=== PATIENT | male | born 1950 | race Caucasian/White ===

== ENCOUNTER → 2016-11-24 | Outpatient (CLI) | payer MEDICARE, BC ==
[2016-11-24 09:31] LABS: Basophils % (A) 1 %; CH 29.7; CHCM 32.3; Eosinophils # (A) 0.6 k/uL (0-0.7); Eosinophils % (A) 11 %; HCT 39.6 % (39.0-53.0); HDW 2.34; HGB 12.6 gm/dL (13.0-17.5); Luc # (Auto) 0.21; Luc % (Auto) 4; Lymphocytes # (A) 1.2 k/uL (1.0-4.8); Lymphocytes % (A) 21 %; MCH 29.4 pg (25.0-35.0); MCHC 31.9 g/dL (31.0-37.0); MCV 92.4 fL (80.0-100.0); Mean Platelet Volume 7.7; Monocytes # (A) 0.4 k/uL (0-1.0); Monocytes % (A) 7 %; Neutrophils # (A) 3.3 k/uL (1.3-7.7); Neutrophils % (A) 57 %; RBC 4.29 m/uL (4.30-5.90); RDW 12.9 % (11.5-15.5); WBC 5.8 k/uL (3.8-10.6); WBC (Perox) 5.99
[2016-11-24 11:36] LABS: Hemoglobin A1C 7.1 % (4.2-6.1)
[2016-11-24 12:02] LABS: ALT 51 U/L (21-72); AST 32 U/L (17-59); Alkaline Phosphatase 87 U/L (38-126); Anion Gap 8 mmol/L; Blood Urea Nitrogen 35 mg/dL (9-20); Calcium 9.1 mg/dL (8.4-10.2); Carbon Dioxide 28 mmol/L (22-30); Chloride 104 mmol/L (98-107); Cholesterol 79 mg/dL (<200); Glucose 196 mg/dL (74-99); HDL Cholesterol 33 mg/dL (40-60); Non-African American GFR(MDRD) 51 (>60 ml/min/1.73 sqM); Potassium 5.5 mmol/L (3.5-5.1); Sodium 140 mmol/L (137-145); Total Bilirubin 0.4 mg/dL (0.2-1.3); Total Protein 6.5 g/dL (6.3-8.2); Triglycerides 64 mg/dL (<150)
== END | disposition home or self-care (01) ==
LOC: LABWHC1 08:52
PROVIDERS: ATTEND Internal Medicine
DX: E11.21 Type 2 diabetes mellitus with diabetic nephropathy (principal); E78.2 Mixed hyperlipidemia; I10 Essential (primary) hypertension; Z12.5 Encounter for screening for malignant neoplasm of prostate
CPT/HCPCS: 80061; 80053; 83036; 85025; 36415; G0103

== ENCOUNTER 2016-12-09 13:57 | Emergency (ER) | payer MEDICARE, BC ==
--- NOTE | 2016-12-09 15:18 | ED ---
General Adult HPI - General Chief complaint: Recheck/Abnormal Lab/Rx Stated complaint: high potassium-sent by Time Seen by Provider: 12/09/16 15:05 Source: patient, RN notes reviewed, old records reviewed Mode of arrival: wheelchair Limitations: no limitations - History of Present Illness Initial comments: This is a 66-year-old male the ER for evaluation of weakness. Diarrhea. Patient has had lab tests be followed an outpatient basis for the dehydration. Patient states he is scheduled for surgery tomorrow, he had an outpatient lab test that did show elevated potassium. Patient states he is eating and drinking normally. This feels a little dehydrated. - Related Data Home Medications Medication Instructions Recorded Confirmed Aspirin EC [Ecotrin Low Dose] 81 mg PO DAILY 12/09/16 12/09/16 Atorvastatin [Lipitor] 40 mg PO HS 12/09/16 12/09/16 Diphenoxylate HCl/Atropine 2 tab PO QID PRN 12/09/16 12/09/16 [Lomotil] Insulin Aspart (For Pump) [NovoLOG 0.01 unit SQ-PUMP CONTINUOUS 12/09/16 (For Pump)] Lisinopril [Zestril] 10 mg PO DAILY 12/09/16 12/09/16 Multivitamins, Thera [Multivitamin] 1 tab PO DAILY 12/09/16 12/09/16 Allergies Allergy/AdvReac Type Severity Reaction Status Date / Time No Known Allergies Allergy Verified 12/09/16 15:38 Review of Systems ROS Statement: Those systems with pertinent positive or pertinent negative responses have been documented in the HPI. ROS Other: All systems not noted in ROS Statement are negative. Past Medical History Past Medical History: Diabetes Mellitus History of Any Multi-Drug Resistant Organisms: None Reported Past Surgical History: Coronary Bypass/CABG Past Psychological History: No Psychological Hx Reported Smoking Status: Never smoker Past Alcohol Use History: None Reported Past Drug Use History: None Reported General Exam Limitations: no limitations General appearance: alert, in no apparent distress Head exam: Present: atraumatic, normocephalic, normal inspection Eye exam: Present: normal appearance, PERRL, EOMI. Absent: scleral icterus, conjunctival injection, periorbital swelling ENT exam: Present: normal exam, mucous membranes moist Neck exam: Present: normal inspection. Absent: tenderness, meningismus, lymphadenopathy Respiratory exam: Present: normal lung sounds bilaterally. Absent: respiratory distress, wheezes, rales, rhonchi, stridor Cardiovascular Exam: Present: regular rate, normal rhythm, normal heart sounds. Absent: systolic murmur, diastolic murmur, rubs, gallop, clicks GI/Abdominal exam: Present: soft, normal bowel sounds. Absent: distended, tenderness, guarding, rebound, rigid Extremities exam: Present: normal inspection, full ROM, normal capillary refill. Absent: tenderness, pedal edema, joint swelling, calf tenderness Back exam: Present: normal inspection Neurological exam: Present: alert, oriented X3, CN II-XII intact Psychiatric exam: Present: normal affect, normal mood Skin exam: Present: warm, dry, intact, normal color. Absent: rash Course Vital Signs 12/09/16 12/09/16 12/09/16 14:29 15:02 16:53 Temperature 98.7 F Pulse Rate 72 65 73 Respiratory 18 14 14 Rate Blood Pressure 83/48 101/51 142/67 O2 Sat by Pulse 96 97 95 Oximetry 12/09/16 12/09/16 18:36 19:19 Temperature 98.9 F Pulse Rate 73 78 Respiratory 14 16 Rate Blood Pressure 155/70 163/75 O2 Sat by Pulse 96 98 Oximetry - Reevaluation(s) Reevaluation #1: 12/09/16 19:30 The patient has no acute complaints, no diarrhea here emergency room, tolerating oral intake, will increase intake of fluids, potassium is dropped from 6-5.3 and patient given Kayexalate and 2 L of IV fluid EKG Findings - EKG Comments: EKG Findings:: EKG shows normal sinus rhythm rate of 60, [place] 152, crit 34, QTc 382, no peak T waves Medical Decision Making - Medical Decision Making 66-year-old ER for evaluation of hyperkalemia, potassium has improved and patient can be discharged home - Lab Data Result diagrams: 12/09/16 14:12 12/09/16 14:12 Lab Results 12/09/16 12/09/16 Range/Units 14:12 14:12 WBC 8.1 (3.8-10.6) k/uL RBC 3.58 L (4.30-5.90) m/uL Hgb 10.6 L (13.0-17.5) gm/dL Hct 32.7 L (39.0-53.0) % MCV 91.1 (80.0-100.0) fL MCH 29.5 (25.0-35.0) pg MCHC 32.4 (31.0-37.0) g/dL RDW 13.1 (11.5-15.5) % Plt Count 248 (150-450) k/uL Neutrophils % 70 % Lymphocytes % 17 % Monocytes % 5 % Eosinophils % 6 % Basophils % 0 % Neutrophils # 5.7 (1.3-7.7) k/uL Lymphocytes # 1.3 (1.0-4.8) k/uL Monocytes # 0.4 (0-1.0) k/uL Eosinophils # 0.5 (0-0.7) k/uL Basophils # 0.0 (0-0.2) k/uL Sodium 139 (137-145) mmol/L Potassium 5.3 H (3.5-5.1) mmol/L Chloride 108 H (98-107) mmol/L Carbon Dioxide 23 (22-30) mmol/L Anion Gap 8 mmol/L BUN 53 H (9-20) mg/dL Creatinine 2.20 H (0.66-1.25) mg/dL Est GFR (MDRD) Af Amer 37 (>60 ml/min/1.73 sqM) Est GFR (MDRD) Non-Af 30 (>60 ml/min/1.73 sqM) Glucose 112 H (74-99) mg/dL Calcium 8.7 (8.4-10.2) mg/dL Phosphorus 4.1 (2.5-4.5) mg/dL Magnesium 1.9 (1.6-2.3) mg/dL Total Bilirubin 0.4 (0.2-1.3) mg/dL AST 28 (17-59) U/L ALT 38 (21-72) U/L Alkaline Phosphatase 59 (38-126) U/L Total Protein 5.7 L (6.3-8.2) g/dL Albumin 3.1 L (3.5-5.0) g/dL Disposition Clinical Impression: Hyperkalemia, Dehydration, Diarrhea Disposition: HOME SELF-CARE Condition: Good Instructions: Hyperkalemia (ED) Referrals: Santosh De La Cruz MD [Primary Care Provider] - 1-2 days
[2016-12-09 15:25] LABS: Basophils % (A) 0 %; CH 29.6; CHCM 32.7; Eosinophils # (A) 0.5 k/uL (0-0.7); Eosinophils % (A) 6 %; HCT 32.7 % (39.0-53.0); HDW 2.35; HGB 10.6 gm/dL (13.0-17.5); Luc # (Auto) 0.16; Luc % (Auto) 2; Lymphocytes # (A) 1.3 k/uL (1.0-4.8); Lymphocytes % (A) 17 %; MCH 29.5 pg (25.0-35.0); MCHC 32.4 g/dL (31.0-37.0); MCV 91.1 fL (80.0-100.0); Mean Platelet Volume 7.6; Monocytes # (A) 0.4 k/uL (0-1.0); Monocytes % (A) 5 %; Neutrophils # (A) 5.7 k/uL (1.3-7.7); Neutrophils % (A) 70 %; RBC 3.58 m/uL (4.30-5.90); RDW 13.1 % (11.5-15.5); WBC 8.1 k/uL (3.8-10.6); WBC (Perox) 8.17
[2016-12-09 15:46] LABS: Calcium 8.7 mg/dL (8.4-10.2); Magnesium 1.9 mg/dL (1.6-2.3); Phosphorous 4.1 mg/dL (2.5-4.5); Potassium 5.3 mmol/L (3.5-5.1); Total Bilirubin 0.4 mg/dL (0.2-1.3); Total Protein 5.7 g/dL (6.3-8.2)
[2016-12-09] MEDS ORDERED: SODIUM CHLORIDE 0.9% 500 ML IV STA (16:14)
[2016-12-09] MEDS ORDERED: SODIUM POLYSTYRENE SULFONATE 15 GM/60 ML BOTTLE PO STA (16:14)
[2016-12-09] MEDS ORDERED: SODIUM CHLORIDE 0.9% 2,000 ML IV STA (16:14)
[2016-12-09 19:20] VITALS: BP 163/75; PULSE 78; RESP 16; TEMP 98.9
== END 2016-12-09 19:20 | disposition home or self-care (01) ==
LOC: EC 13:57
DX: E87.5 Hyperkalemia (principal); E86.0 Dehydration; R19.7 Diarrhea, unspecified; E11.9 Type 2 diabetes mellitus without complications; Z95.1 Presence of aortocoronary bypass graft; Z79.82 Long term (current) use of aspirin; Z79.4 Long term (current) use of insulin; Z79.899 Other long term (current) drug therapy
CPT/HCPCS: 36415; 80053; 83735; 84100; 85025; 93005; 99284

== ENCOUNTER → 2016-12-09 | Outpatient (CLI) | payer MEDICARE, BC ==
[2016-12-09 10:16] LABS: EKG EKG PERFORMED
[2016-12-09 11:04] LABS: Basophils % (A) 0 %; CH 29.5; CHCM 32.2; Eosinophils # (A) 0.2 k/uL (0-0.7); Eosinophils % (A) 2 %; HCT 35.6 % (39.0-53.0); HDW 2.37; HGB 11.6 gm/dL (13.0-17.5); Luc # (Auto) 0.09; Luc % (Auto) 1; Lymphocytes # (A) 0.9 k/uL (1.0-4.8); Lymphocytes % (A) 10 %; MCH 29.9 pg (25.0-35.0); MCHC 32.5 g/dL (31.0-37.0); Mean Platelet Volume 8.3; Monocytes # (A) 0.5 k/uL (0-1.0); Monocytes % (A) 5 %; Neutrophils # (A) 7.3 k/uL (1.3-7.7); Neutrophils % (A) 81 %; RBC 3.87 m/uL (4.30-5.90); WBC 9.1 k/uL (3.8-10.6); WBC (Perox) 9.64
[2016-12-09 11:35] LABS: ALT 39 U/L (21-72); AST 30 U/L (17-59); Alkaline Phosphatase 67 U/L (38-126); Anion Gap 10 mmol/L; Blood Urea Nitrogen 49 mg/dL (9-20); Calcium 9.2 mg/dL (8.4-10.2); Carbon Dioxide 25 mmol/L (22-30); Chloride 106 mmol/L (98-107); Glucose 78 mg/dL (74-99); Non-African American GFR(MDRD) 30 (>60 ml/min/1.73 sqM); Sodium 141 mmol/L (137-145); Total Bilirubin 0.5 mg/dL (0.2-1.3); Total Protein 6.4 g/dL (6.3-8.2)
== END | disposition home or self-care (01) ==
LOC: LABPAT 09:50
PROVIDERS: ATTEND Orthopaedic Surgery
DX: Z01.812 Encounter for preprocedural laboratory examination (principal); Z01.810 Encounter for preprocedural cardiovascular examination
CPT/HCPCS: 80053; 85025; 93005

== ENCOUNTER 2016-12-10 09:36 | Inpatient (IN) | payer MEDICARE, BC ==
[2016-12-09 11:51] VITALS: BMI 24.3
[~2016-12-10 09:36] MED LIST: ceFAZolin 2 GM in SODIUM CHLORIDE 0.9% 100 ML IVPB ONE
[2016-12-10 14:00] LABS: Glucose,Whole Blood 111 mg/dL (75-99)
[2016-12-10] MEDS ORDERED: LIDOCAINE 1% 20 ML VIAL (10MG/ML) FOR IV START INTRADERMA ONE (14:01)
[2016-12-10] MEDS: LACTATED RINGERS 1,000 ML IV SCH (14:01)
[2016-12-10] MEDS ORDERED: SENNOSIDES-DOCUSATE SODIUM 1 EACH TAB PO PRN (14:20)
[2016-12-10] MEDS ORDERED: ONDANSETRON 4 MG/2 ML VIAL IVP PRN (14:20)
[2016-12-10] MEDS ORDERED: HYDROmorphone 1 MG/ML 1 ML SYRINGE IVP PRN ×2 (14:20)
[2016-12-10] MEDS ORDERED: hydrOXYzine PAMOATE 25 MG CAP PO PRN ×2 (14:20)
[2016-12-10 14:32] LABS: Potassium 5.4 mmol/L (3.5-5.1)
[2016-12-10 14:35] LABS: Potassium 5.4 mmol/L (3.5-5.1)
[2016-12-10] MEDS ORDERED: ceFAZolin 2 GM in SODIUM CHLORIDE 0.9% 100 ML IVPB SCH (16:00)
[2016-12-10 16:56] LABS: Glucose,Whole Blood 146 mg/dL (75-99)
[2016-12-10] MEDS: SODIUM CHLORIDE 0.9% 1,000 ML IV SCH (17:44)
[2016-12-10 18:41] LABS: Basophils % (A) 0 %; CH 29.4; CHCM 31.6; Eosinophils # (A) 0.3 k/uL (0-0.7); Eosinophils % (A) 4 %; HCT 35.7 % (39.0-53.0); HDW 2.33; HGB 11.2 gm/dL (13.0-17.5); Luc # (Auto) 0.16; Luc % (Auto) 2; Lymphocytes # (A) 1.1 k/uL (1.0-4.8); Lymphocytes % (A) 16 %; MCH 29.3 pg (25.0-35.0); MCHC 31.4 g/dL (31.0-37.0); MCV 93.4 fL (80.0-100.0); Mean Platelet Volume 8.2; Monocytes # (A) 0.3 k/uL (0-1.0); Monocytes % (A) 5 %; Neutrophils # (A) 5.3 k/uL (1.3-7.7); Neutrophils % (A) 74 %; RBC 3.83 m/uL (4.30-5.90); RDW 13.1 % (11.5-15.5); WBC 7.2 k/uL (3.8-10.6)
[2016-12-10] MEDS ORDERED: SODIUM POLYSTYRENE SULFONATE 15 GM/60 ML BOTTLE PO STA (19:05)
[2016-12-10] MEDS: ATORVASTATIN 40 MG TAB PO SCH (20:31)
[2016-12-10 20:58] LABS: Glucose,Whole Blood 73 mg/dL (75-99)
[2016-12-10] MEDS ORDERED: ASPIRIN 325 MG TAB PO SCH (21:00)
[2016-12-11] MEDS: SODIUM CHLORIDE 0.9% 1,000 ML IV SCH ×2 (05:15→07:33)
[2016-12-11] MEDS: LACTATED RINGERS 1,000 ML IV SCH (05:45)
[2016-12-11 06:55] LABS: Glucose,Whole Blood 66 mg/dL (75-99)
[2016-12-11 06:55] LABS: Glucose,Whole Blood 69 mg/dL (75-99)
[2016-12-11 07:05] LABS: Anion Gap 8 mmol/L; Blood Urea Nitrogen 24 mg/dL (9-20); Calcium 8.9 mg/dL (8.4-10.2); Carbon Dioxide 26 mmol/L (22-30); Chloride 108 mmol/L (98-107); Glucose 73 mg/dL (74-99); Non-African American GFR(MDRD) 59 (>60 ml/min/1.73 sqM); Potassium 5.1 mmol/L (3.5-5.1); Sodium 142 mmol/L (137-145)
[2016-12-11] MEDS: LISINOPRIL 10 MG TAB PO SCH (07:33)
[2016-12-11 07:42] LABS: Glucose,Whole Blood 113 mg/dL (75-99)
--- NOTE | 2016-12-11 10:54 | P.PN ---
Subjective Principal diagnosis: Left patella fracture This is a 66-year-old male with history of left patella fracture. He was scheduled for open reduction showed fixation with possible partial papillectomy yesterday. His potassium was elevated in preop some is surgical case was canceled. His potassium is within normal limits today. He is doing well from orthopedic standpoint. He has no new complaints or concerns today. Objective - Vital Signs Vital signs: Vital Signs Temp 97.9 F 12/11/16 07:35 Pulse 68 12/11/16 07:35 Resp 17 12/11/16 07:35 BP 152/57 12/11/16 07:35 Pulse Ox 98 12/11/16 07:35 Intake & Output 12/10/16 12/11/16 12/11/16 18:59 06:59 18:59 Intake Total 1400 360 Balance 1400 360 Intake: Intake, IV Titration 900 Amount Sodium Chloride 0.9% 1, 900 000 ml @ 75 mls/hr IV . [id number] [facility] Rx#:[id number] Oral 500 360 Other: Voiding Method Urinal Toilet Toilet # Voids 1 - Exam This is a pleasant 66-year-old male in no acute distress. He is alert and oriented 3. Exam of the left lower extremity reveals that his braces intact. He has full foot and ankle motion without difficulty or pain. Neurovascular status to the lower extremity is intact. - Labs CBC & Chem 7: 12/10/16 15:22 12/11/16 06:15 Labs: Abnormal Lab Results - Last 24 Hours (Table) 12/09/16 12/10/16 12/10/16 Range/Units 13:30 13:30 13:40 RBC (4.30-5.90) m/uL Hgb (13.0-17.5) gm/dL Hct (39.0-53.0) % Potassium 5.4 H 5.4 H (3.5-5.1) mmol/L Chloride 109 H 109 H (98-107) mmol/L BUN (9-20) mg/dL Glucose (74-99) mg/dL POC Glucose (mg/dL) 111 H (75-99) mg/dL 12/10/16 12/10/16 12/10/16 Range/Units 15:22 16:32 20:38 RBC 3.83 L (4.30-5.90) m/uL Hgb 11.2 L (13.0-17.5) gm/dL Hct 35.7 L (39.0-53.0) % Potassium (3.5-5.1) mmol/L Chloride (98-107) mmol/L BUN (9-20) mg/dL Glucose (74-99) mg/dL POC Glucose (mg/dL) 146 H 73 L (75-99) mg/dL 12/11/16 12/11/16 12/11/16 Range/Units 06:15 06:37 06:53 RBC (4.30-5.90) m/uL Hgb (13.0-17.5) gm/dL Hct (39.0-53.0) % Potassium (3.5-5.1) mmol/L Chloride 108 H (98-107) mmol/L BUN 24 H (9-20) mg/dL Glucose 73 L (74-99) mg/dL POC Glucose (mg/dL) 69 L 66 L (75-99) mg/dL 12/11/16 Range/Units 07:22 RBC (4.30-5.90) m/uL Hgb (13.0-17.5) gm/dL Hct (39.0-53.0) % Potassium (3.5-5.1) mmol/L Chloride (98-107) mmol/L BUN (9-20) mg/dL Glucose (74-99) mg/dL POC Glucose (mg/dL) 113 H (75-99) mg/dL Assessment and Plan (1) Fracture of patella, left, closed Status: Acute (2) Hyperkalemia Status: Acute Plan: The clinical findings are discussed with the patient. He has been cleared by Dr. De La Cruz for surgery tomorrow.
[2016-12-11 11:19] LABS: Glucose,Whole Blood 123 mg/dL (75-99)
[2016-12-11 11:59] LABS: Hemoglobin A1C 6.9 % (4.2-6.1)
[2016-12-11 16:36] LABS: Glucose,Whole Blood 51 mg/dL (75-99)
[2016-12-11 17:11] LABS: Glucose,Whole Blood 92 mg/dL (75-99)
[2016-12-11] MEDS: ATORVASTATIN 40 MG TAB PO SCH (19:40)
[2016-12-11 19:49] LABS: Glucose,Whole Blood 124 mg/dL (75-99)
[2016-12-12] MEDS: HYDROcodone/APAP 5-325MG 1 EACH TAB PO PRN ×4 (00:15→23:17)
[2016-12-12] MEDS: LACTATED RINGERS 1,000 ML IV SCH (05:40)
--- NOTE | 2016-12-12 06:31 | P.CONS ---
History of Present Illness - Reason for Consult Consult date: 12/11/16 - Chief Complaint Fracture left patella - History of Present Illness 66-year-old white male with long-standing history of atherosclerotic heart disease insulin-dependent diabetes and hypertension sustained a fall with subsequent fracture of his left patella. Patient was scheduled for surgical repair unfortunately was found to have elevated potassium. Also patient was in mild prerenal azotemia and was sent to the ER preoperatively. Repeat potassium was not obtained in the ER after the patient was given IV fluids. Patient was scheduled for elective surgery and his potassium was found be 5.4, surgery was delayed pending medical correction of this problem. Current time the patient complains of some discomfort in his left knee area however denies any chest pain nausea or vomiting. Patient has been compliant with medications and his diabetic control. I'm seeing the patient preoperatively to correct his metabolic abnormalities prior to surgery involving his left patella. Review of Systems Cardiovascular: Reports as per HPI Gastrointestinal: Reports diarrhea (This is been a recurrent problem of large amounts of mucousy stool since his trip to [place] approximately 6 weeks ago. ) Past Medical History Past Medical History: Diabetes Mellitus, Hyperlipidemia, Hypertension, Musculoskeletal Disorder Additional Past Medical History / Comment(s): fell & fx. left patella-currently wearing immobilizer, frequent, intermittent diarrhea since Aug.-mostly controlled w/lomotil-was hospitalized in Aug. for dehydration due to virus/ diarrhea? History of Any Multi-Drug Resistant Organisms: None Reported Past Surgical History: Cholecystectomy, Coronary Bypass/CABG, Heart Catheterization Additional Past Surgical History / Comment(s): quad bypass 2002, surg. for ruptured blood vessel behind eye Past Anesthesia/Blood Transfusion Reactions: No Reported Reaction Past Psychological History: No Psychological Hx Reported Smoking Status: Former smoker Past Alcohol Use History: None Reported Additional Past Alcohol Use History / Comment(s): quit smoking 2002, smoked for 35 yrs. Past Drug Use History: None Reported - Past Family History Mother Family Medical History: No Reported History Medications and Allergies Home Medications Medication Instructions Recorded Confirmed Type Aspirin EC [Ecotrin Low Dose] 81 mg PO DAILY 12/09/16 12/10/16 History Atorvastatin [Lipitor] 40 mg PO HS 12/09/16 12/10/16 History Diphenoxylate HCl/Atropine 2 tab PO QID PRN 12/09/16 12/10/16 History [Lomotil] Insulin Aspart (For Pump) [NovoLOG 0.01 unit SQ-PUMP CONTINUOUS 12/09/16 History (For Pump)] Lisinopril [Zestril] 10 mg PO DAILY 12/09/16 12/10/16 History Multivitamins, Thera [Multivitamin] 1 tab PO DAILY 12/09/16 12/10/16 History Allergies Allergy/AdvReac Type Severity Reaction Status Date / Time No Known Allergies Allergy Verified 12/09/16 15:38 Physical Exam Vitals: Vital Signs Temp Pulse Resp BP Pulse Ox 12/11/16 20:00 98 F 69 16 146/66 95 12/11/16 16:00 18 12/11/16 14:12 97.5 F L 75 18 91/51 96 12/11/16 07:35 97.9 F 68 17 152/57 98 Intake and Output 12/11/16 12/11/16 12/12/16 14:59 22:59 06:59 Intake Total 600 925 375 Balance 600 925 375 Intake: Intake, IV Titration 375 375 Amount Sodium Chloride 0.9% 1, 375 375 000 ml @ 75 mls/hr IV . [id number] [facility] Rx#:[id number] Oral 600 550 Other: Voiding Method Toilet Toilet # Voids 1 1 - Constitutional General appearance: cooperative - EENT Eyes: PERRLA ENT: hearing grossly normal - Neck Carotids: bilateral: upstroke normal - Respiratory Respiratory: bilateral: CTA - Cardiovascular Rhythm: regular Heart sounds: normal: S1, S2 - Gastrointestinal General gastrointestinal: normal bowel sounds - Neurologic Neurologic: CNII-XII intact - Musculoskeletal Musculoskeletal: gait normal - Psychiatric Psychiatric: A&O x's 3 Results CBC & Chem 7: 12/10/16 15:22 12/11/16 06:15 Labs: Abnormal Lab Results - Last 24 Hours (Table) 12/11/16 12/11/16 12/11/16 Range/Units 06:15 06:15 06:37 Chloride 108 H (98-107) mmol/L BUN 24 H (9-20) mg/dL Glucose 73 L (74-99) mg/dL POC Glucose (mg/dL) 69 L (75-99) mg/dL Hemoglobin A1c 6.9 H (4.2-6.1) % 12/11/16 12/11/16 12/11/16 Range/Units 06:53 07:22 11:16 Chloride (98-107) mmol/L BUN (9-20) mg/dL Glucose (74-99) mg/dL POC Glucose (mg/dL) 66 L 113 H 123 H (75-99) mg/dL Hemoglobin A1c (4.2-6.1) % 12/11/16 12/11/16 Range/Units 16:34 19:38 Chloride (98-107) mmol/L BUN (9-20) mg/dL Glucose (74-99) mg/dL POC Glucose (mg/dL) 51 L 124 H (75-99) mg/dL Hemoglobin A1c (4.2-6.1) % Assessment and Plan (1) Fracture of patella, left, closed Narrative/Plan: Patient's metabolic abnormalities have improved. His mild dehydration his resolved with adequate IV fluids and his hyperkalemia is at 5.1 at this time. I see no medical contraindication to planned surgical intervention to repair his fractured patella. I will continue to follow with you while here in the hospital. Status: Acute (2) Hyperkalemia Narrative/Plan: Most likely due to dehydration from the patient's gastroenteritis. Patient states the diarrhea is better this morning. We'll continue to pursue the causes of that as an outpatient. Status: Acute (3) Diabetes mellitus with renal complications Narrative/Plan: Judicious use of IV fluids and monitoring of patient's renal function. Thank very much Dr. Messer for allowing me to participate in the care of my patient , I'll continue to follow with you while here in the hospital. Status: Acute
[2016-12-12 07:02] LABS: Glucose,Whole Blood 111 mg/dL (75-99)
[2016-12-12 07:04] LABS: Anion Gap 7 mmol/L; Blood Urea Nitrogen 17 mg/dL (9-20); Calcium 8.9 mg/dL (8.4-10.2); Carbon Dioxide 27 mmol/L (22-30); Chloride 106 mmol/L (98-107); Glucose 125 mg/dL (74-99); Non-African American GFR(MDRD) >60 (>60 ml/min/1.73 sqM); Potassium 5.2 mmol/L (3.5-5.1); Sodium 140 mmol/L (137-145)
[2016-12-12] MEDS ORDERED: ePHEDrine 50 MG/ML 1 ML AMP ONE (07:28)
[2016-12-12] MEDS ORDERED: ONDANSETRON 4 MG/2 ML VIAL ONE (07:28)
[2016-12-12] MEDS ORDERED: GLYCOPYRROLATE 0.2 MG/ML 2 ML VIAL ONE (07:28)
[2016-12-12] MEDS ORDERED: VECURONIUM 10 MG VIAL IV ONE (07:28)
[2016-12-12] MEDS ORDERED: NEOSTIGMINE 1 MG/ML 10 ML VIAL ONE (07:28)
[2016-12-12] MEDS ORDERED: SUCCINYLCHOLINE CHLORIDE 100 MG/5 ML SYR IV ONE (07:28)
[2016-12-12] MEDS ORDERED: LIDOCAINE 1% INJ 10MG/ML (20 ML MDV) ONE (07:28)
[2016-12-12] MEDS ORDERED: PROPOFOL 10 MG/ML 20 ML VIAL IV ONE (07:28)
[2016-12-12] MEDS ORDERED: fentaNYL (PF) 50 MCG/ML 2 ML AMP ONE (07:28)
[2016-12-12] MEDS ORDERED: MIDAZOLAM 2 MG/2 ML VIAL ONE (07:28)
[2016-12-12] MEDS ORDERED: HYDROmorphone (PF) 1 MG/ML ONE (07:28)
[2016-12-12] MEDS: ceFAZolin 2 GM in SODIUM CHLORIDE 0.9% 100 ML IVPB ONE ×2 (07:29→07:35)
[2016-12-12] MEDS ORDERED: IV FLUID CONTINUATION 1,000 ML IV ONE ×2 (07:29)
[2016-12-12] MEDS ORDERED: ceFAZolin 3,000 MG in SODIUM CHLORIDE 0.9% IRRIGATIO 3,000 ML IRRIGATION ONE (07:56)
[2016-12-12] MEDS ORDERED: HYDROmorphone 1 MG/ML 1 ML SYRINGE IVP PRN (08:42)
[2016-12-12] MEDS ORDERED: NALOXONE 0.4 MG/ML 1 ML VIAL IV PRN (08:42)
--- NOTE | 2016-12-12 08:42 | P.OP ---
Date of Procedure: 12/12/16 Preoperative Diagnosis: Fracture inferior pole left patella Postoperative Diagnosis: Fracture inferior pole left patella Procedure(s) Performed: Open reduction and internal fixation of the left patella and partial patellectomy Anesthesia: LES, spinal Surgeon: Marc Messer Estimated Blood Loss (ml): 20 Pathology: none sent Condition: stable Disposition: PACU Indications for Procedure: This is a 66-year-old gentleman sustained a fracture of his left patella while falling down. X-rays demonstrate a complete fracture of the inferior pole of the patella with significant displacement. After discussing the surgical and nonsurgical treatment options with her at length I've recommended open reduction and internal fixation of his left patella with possible partial patellectomy. Informed consent was obtained Operative Findings: The operative findings are consistent with a significantly displaced fracture of the inferior pole of the left patella. Description of Procedure: Patient was seen in the preoperative area consent was reviewed and operative site was marked with a skin marker. Patient was then brought to the operating room and given preoperative antibiotics intravenously. A general anesthetic was administered by the anesthesia department. A tourniquet was placed on the upper thigh and the lower extremity was prepped and draped in usual sterile fashion. A universal timeout was then performed which confirmed the patient's name, surgical site, ALLERGIES, and consent. The lower extremity was then exsanguinated and tourniquet was inflated to 250 mmHg. A standard and anterior midline approach to the knee was performed. The skin and subcutaneous tissue was dissected down to the patellar tendon. A large hematoma was then encountered. The patella fracture was readily visualized, and significantly displaced. The knee joint was then irrigated with antibiotic solution. The edges of the patella were then debrided. The inferior pole of the patella was quite comminuted, and a partial patellectomy many was performed. Next, using thick #5 Ethibond suture, the patella fracture was sutured. Drill holes to the patella were utilized. After the repair had been performed, fluoroscopy was used to confirm reduction of the fracture. The knee was then gently bent in order to confirm the strength of the repair. The tourniquet was then released and hemostasis was obtained. The knee was again irrigated with antibiotic solution. The subcutaneous tissues were closed with 2-0 Vicryl, and dorinda for the skin. A sterile dressing was then applied. She was transferred to recovery room after being placed in a knee immobilzer.
[2016-12-12 09:20] LABS: Glucose,Whole Blood 116 mg/dL (75-99)
[2016-12-12 09:46] LABS: Basophils # (A) 0.1 k/uL (0-0.2); Basophils % (A) 1 %; CH 29.8; CHCM 32.1; Eosinophils # (A) 0.6 k/uL (0-0.7); Eosinophils % (A) 8 %; HCT 34.5 % (39.0-53.0); HDW 2.38; HGB 11.1 gm/dL (13.0-17.5); Luc # (Auto) 0.12; Luc % (Auto) 2; Lymphocytes # (A) 1.6 k/uL (1.0-4.8); Lymphocytes % (A) 24 %; MCH 29.9 pg (25.0-35.0); MCHC 32.1 g/dL (31.0-37.0); Monocytes # (A) 0.5 k/uL (0-1.0); Monocytes % (A) 8 %; Neutrophils % (A) 58 %; RBC 3.71 m/uL (4.30-5.90); RDW 13.1 % (11.5-15.5); WBC 6.9 k/uL (3.8-10.6); WBC (Perox) 6.87
[2016-12-12] MEDS ORDERED: ONDANSETRON 4 MG/2 ML VIAL IVP ONE (10:15)
[2016-12-12] MEDS ORDERED: LACTATED RINGERS 1,000 ML IV SCH (10:15)
[2016-12-12] MEDS: LISINOPRIL 10 MG TAB PO SCH (10:33)
[2016-12-12] MEDS: SODIUM CHLORIDE 0.9% 1,000 ML IV SCH ×2 (11:12→23:23)
--- NOTE | 2016-12-12 11:30 | XR ---
EXAMINATION TYPE: XR knee limited LT DATE OF EXAM: 12/12/2016 8:29 AM CLINICAL HISTORY: ORIF LEFT KNEE ORIF LEFT KNEE; TWO SCANNED FILMS; FL TIME 3 SECONDS; DR. ALEXANDER
[2016-12-12 11:36] LABS: Glucose,Whole Blood 127 mg/dL (75-99)
--- NOTE | 2016-12-12 11:47 | CONS ---
DATE OF CONSULTATION: REASON FOR CONSULT: Management of chronic medical conditions. HISTORY OF PRESENT ILLNESS: Mr. Thakur is a 66-year-old male with a past medical history of type 1 diabetes mellitus, hypertension, hyperlipidemia, coming into the hospital after sustaining a left knee injury. The patient states that he was [place] a gas station where he hit the edge of the pavement and fell on his left knee and has injured his left patella. He has a fracture of his left patella. Patient has history of type 1 diabetes mellitus maintained on an insulin pump and he is compliant with his medications. At the time of admission, patient's potassium was found to be at 5.4 so his surgery has been postponed until tomorrow morning. Patient's potassium is 5.1 today. At baseline, patient's hypertension and diabetes mellitus are under good control. Patient denies having any difficulty in breathing, chest pain, or swelling of his lower extremities. He is able to walk 3 to 4 blocks without having any difficulty in breathing. REVIEW OF SYSTEMS: CONSTITUTIONAL: He denies having any fever, chills or rigors. RESPIRATORY: No cough. No difficulty in breathing. CARDIAC: No chest pain or palpitation. GI: No abdominal pain, nausea, vomiting, or diarrhea. : No dysuria or hematuria. FIELD OPERATOR: No loss of consciousness, syncopal episodes. RHEUMATOLOGICAL: No history of joint aches or pains. ENDOCRINE: Positive for history of type 1 diabetes mellitus. All 13 review of systems are negative except for the ones mentioned in the HPI. Past medical history significant for type 1 diabetes mellitus, hypertension, hyperlipidemia. PAST SURGICAL HISTORY: Cholecystectomy, CABG. SOCIAL HISTORY: Former smoker, quit smoking 2002, he smoked for 35 years. Occasional alcohol. No history of intravenous drug abuse. ALLERGIES: No known drug allergies. Patient's home medications are lisinopril 10 mg p.o. daily, insulin pump, Lomotil 2 tablets p.o. p.r.n. for diarrhea, Lipitor 80 mg p.o. q.h.s., aspirin 81 mg p.o. daily, multivitamin 1 tablet p.o. daily. On examination, patient's vital signs temperature 98, heart rate 50, respiratory rate 16, blood pressure 146/66, saturating at 95% on room. GENERAL EXAMINATION: Patient appears to be in no acute distress. He has some discomfort in his left knee due to the patellar fracture. HEAD: Atraumatic, normocephalic. EYES: Pupils, round, and reactive to light. NECK: No JVD, no thyromegaly. CARDIOVASCULAR: S1, S2 heard. No additional sounds. RESPIRATORY: Bilateral breath sounds are positive. No wheeze or crackles. ABDOMEN: Soft, nontender. Bowel sounds are positive. EXTREMITIES: No edema. No cyanosis, no clubbing, peripheral pulses felt. FIELD OPERATOR: Awake, alert and oriented x3. No focal neurological deficits. PSYCHIATRIC: Appropriate mood and affect. SKIN: No rash. Patient's labs, has a white count of 7.2, hemoglobin 11.2, platelets 251. Sodium 142, potassium 5.1, chloride 108, bicarb 26, BUN 24, creatinine 1.23. Hemoglobin A1c of 6.9. ASSESSMENT AND PLAN: 1. Acute left patellar fracture. 2. Hyperkalemia, that has resolved. 3. Type 1 diabetes mellitus. Continue with insulin pump. 4. Hypertension. 5. Hyperlipidemia. PLAN: The patient's potassium level trended to 5.1. Will continue with his insulin pump for his diabetes management and GI and DVT prophylaxis as per primary care team management. Further recommendations to follow depending on the progress of the patient.
--- NOTE | 2016-12-12 12:41 | FL ---
EXAMINATION TYPE: FL guidance operating room DATE OF EXAM: 12/12/2016 8:29 AM FLUOROSCOPY Fluoroscopy time of 3 seconds was used during left knee ORIF for patellar fracture. 2 image/s documen t/s the procedure.
[2016-12-12 15:44] LABS: Glucose,Whole Blood 188 mg/dL (75-99)
[2016-12-12] MEDS: HYDROmorphone 1 MG/ML 1 ML SYRINGE IVP PRN ×2 (16:01→19:41)
[2016-12-12 16:58] LABS: Glucose,Whole Blood 163 mg/dL (75-99)
[2016-12-12] MEDS: ceFAZolin 2 GM in SODIUM CHLORIDE 0.9% 100 ML IVPB SCH ×2 (17:49→23:17)
[2016-12-12] MEDS ORDERED: WARFARIN 5 MG TAB PO ONE (18:00)
[2016-12-12] MEDS: ATORVASTATIN 40 MG TAB PO SCH (20:49)
[2016-12-12 20:57] LABS: Glucose,Whole Blood 123 mg/dL (75-99)
[2016-12-13] MEDS: HYDROmorphone 1 MG/ML 1 ML SYRINGE IVP PRN (03:49)
[2016-12-13] MEDS: HYDROcodone/APAP 5-325MG 1 EACH TAB PO PRN ×2 (04:17→12:56)
[2016-12-13 06:58] LABS: Glucose,Whole Blood 160 mg/dL (75-99)
[2016-12-13] MEDS: LISINOPRIL 10 MG TAB PO SCH (07:53)
--- NOTE | 2016-12-13 08:15 | P.DS ---
Providers Date of admission: 12/10/16 15:11 Expected date of discharge: 12/13/16 Attending physician: Marc Messer Consults: 12/10/16 14:24 Consult Physician Routine Consulting Provider: Santosh De La Cruz Consult Reason/Comments: medical management Do you want consulting provider notified?: Yes Primary care physician: Stated None - Discharge Diagnosis(es) (1) Fracture of patella, left, closed Current Visit: Yes Status: Acute Hospital Course: This is a 66-year-old gentleman who sustained a fracture of his left patella after a fall. X-rays demonstrated a complete fracture of the inferior pole the patella with significant displacement. After discussion and consideration patient elected to proceed with surgical intervention. The patient was hypokalemic on day of planned surgery. He was admitted for further evaluation and medical clearance. The patient underwent ORIF of the left patella on 2016. The procedure was performed without competitions or sequelae. The patient has done well postoperatively. He seen and evaluated at bedside. He states that his pain is well-controlled. Knee immobilizer is intact. Dressing is clean dry and intact. He has sustained dorsiflexion plantar flexion extensor hallux longus. Toes are pink and warm capillary refill is brisk. Sensation is intact. The patient is orthopedically stable for discharge to home today if he is cleared medically. Please refer to discharge instructions for further instructions Pertinent Studies: Laboratory Tests 12/12/16 12/12/16 06:30 06:30 WBC 6.9 RBC 3.71 L Hgb 11.1 L Hct 34.5 L MCV 93.0 MCH 29.9 Sodium 140 Potassium 5.2 H Chloride 106 Carbon Dioxide 27 Anion Gap 7 BUN 17 Creatinine 1.20 Est GFR (MDRD) Af Amer >60 Est GFR (MDRD) Non-Af >60 Glucose 125 H Patient Condition at Discharge: Good Plan - Discharge Summary New Discharge Prescriptions: HYDROcodone/APAP 5-325MG [[place] 5-325] 1 - 2 each PO Q4-6H PRN #60 tab PRN Reason: Pain Sennosides-Docusate Sodium [Senokot-S] 2 tab PO DAILY #60 tablet Warfarin [Coumadin] 2.5 mg PO DAILY #30 tab Discharge Medication List Aspirin EC [Ecotrin Low Dose] 81 mg PO DAILY 12/09/16 [History] Atorvastatin [Lipitor] 40 mg PO HS 12/09/16 [History] Diphenoxylate HCl/Atropine [Lomotil] 2 tab PO QID PRN 12/09/16 [History] Insulin Aspart (For Pump) [NovoLOG (For Pump)] 0.01 unit SQ-PUMP CONTINUOUS 12/24 [History] Lisinopril [Zestril] 10 mg PO DAILY 12/09/16 [History] Multivitamins, Thera [Multivitamin] 1 tab PO DAILY 12/09/16 [History] Sennosides-Docusate Sodium [Senokot-S] 2 tab PO DAILY #60 tablet 12/10/16 [Rx] HYDROcodone/APAP 5-325MG [[place] 5-325] 1 - 2 each PO Q4-6H PRN #60 tab 12/12/16 [Rx] Warfarin [Coumadin] 2.5 mg PO DAILY #30 tab 12/12/16 [Rx] Follow up Appointment(s)/Referral(s): Marc Messer DO [Doctor of Osteopathic Medicine] - 2 Weeks Ambulatory/Diagnostic Orders: Walker [DME.AMB1] Location: Determined By Patient Prothrombin Time INR [LAB.AMB] Location: Determined By Patient Activity/Diet/Wound Care/Special Instructions: May weightbear to tolerance with knee immobilizer intact with walker NO Flexion at the knee. Maintain knee immobilizer Call [facility] with any questions or concerns [phone] Discharge Disposition: HOME WITH HOME HEALTH SERVICES
[2016-12-13 11:40] LABS: Glucose,Whole Blood 154 mg/dL (75-99)
[2016-12-13 14:40] VITALS: PULSE 80; RESP 17; TEMP 97.8
[2016-12-13 14:41] VITALS: BP 102/50
[2016-12-13 16:38] LABS: Glucose,Whole Blood 87 mg/dL (75-99)
== END 2016-12-13 18:17 | disposition home health service (06) | DRG 489 ==
LOC: UNDOADMIN 12:40 → 2ORMAIN 12:40 → 3SUR 15:11
PROVIDERS: ADMIT Orthopaedic Surgery; ATTEND Orthopaedic Surgery
PROC: 0QSF04Z Reposition Left Patella with Internal Fixation Device, Open Approach (ICD-10-PCS; 2016-12-12)
PROC: 0QBF0ZZ Excision of Left Patella, Open Approach (ICD-10-PCS; principal; 2016-12-12 07:30)
DX: S82.002A Unspecified fracture of left patella, initial encounter for closed fracture (principal); E10.29 Type 1 diabetes mellitus with other diabetic kidney complication; E87.5 Hyperkalemia; I10 Essential (primary) hypertension; E78.5 Hyperlipidemia, unspecified; E86.0 Dehydration; K52.9 Noninfective gastroenteritis and colitis, unspecified; I25.10 Atherosclerotic heart disease of native coronary artery without angina pectoris; Z95.1 Presence of aortocoronary bypass graft; Z90.49 Acquired absence of other specified parts of digestive tract; Z87.891 Personal history of nicotine dependence; Z96.41 Presence of insulin pump (external) (internal); Z79.4 Long term (current) use of insulin; W10.1XXA Fall (on)(from) sidewalk curb, initial encounter; Y92.524 Gas station as the place of occurrence of the external cause
CPT/HCPCS: 36415; 80048; 80051; 80053; 83036; 83735; 84100; 85025; 93005

== ENCOUNTER → 2017-01-29 | Outpatient (CLI) | payer MEDICARE, BC ==
[2017-01-29 09:46] LABS: Anion Gap 11 mmol/L; Blood Urea Nitrogen 34 mg/dL (9-20); Calcium 9.6 mg/dL (8.4-10.2); Carbon Dioxide 26 mmol/L (22-30); Chloride 101 mmol/L (98-107); Glucose 160 mg/dL (74-99); Non-African American GFR(MDRD) 50 (>60 ml/min/1.73 sqM); Potassium 5.5 mmol/L (3.5-5.1); Sodium 138 mmol/L (137-145)
[2017-01-29 12:45] LABS: Hemoglobin A1C 6.5 % (4.2-6.1)
== END | disposition home or self-care (01) ==
LOC: LABWHC1 08:44
PROVIDERS: ATTEND Internal Medicine
DX: E11.21 Type 2 diabetes mellitus with diabetic nephropathy (principal)
CPT/HCPCS: 36415; 80048; 83036

== ENCOUNTER → 2017-04-23 | Outpatient (CLI) | payer MEDICARE, BC ==
[2017-04-23 09:40] LABS: Anion Gap 9 mmol/L; Blood Urea Nitrogen 32 mg/dL (9-20); Carbon Dioxide 26 mmol/L (22-30); Chloride 105 mmol/L (98-107); Glucose 150 mg/dL (74-99); Non-African American GFR(MDRD) 51 (>60 ml/min/1.73 sqM); Potassium 4.9 mmol/L (3.5-5.1); Sodium 140 mmol/L (137-145)
[2017-04-23 12:13] LABS: Hemoglobin A1C 6.7 % (4.2-6.1)
== END | disposition home or self-care (01) ==
LOC: LABWHC1 09:15
PROVIDERS: ATTEND Internal Medicine
DX: E11.21 Type 2 diabetes mellitus with diabetic nephropathy (principal)
CPT/HCPCS: 36415; 80048; 82043; 83036

== ENCOUNTER → 2017-07-16 | Outpatient (CLI) | payer MEDICARE, BC ==
[2017-07-16 09:19] LABS: Anion Gap 8 mmol/L; Blood Urea Nitrogen 28 mg/dL (9-20); Calcium 9.6 mg/dL (8.4-10.2); Carbon Dioxide 29 mmol/L (22-30); Chloride 103 mmol/L (98-107); Glucose 169 mg/dL (74-99); Non-African American GFR(MDRD) >60 (>60 ml/min/1.73 sqM); Potassium 5.4 mmol/L (3.5-5.1); Sodium 140 mmol/L (137-145)
[2017-07-16 10:41] LABS: Hemoglobin A1C 6.9 % (4.2-6.1)
== END | disposition home or self-care (01) ==
LOC: LABWHC1 08:36
PROVIDERS: ATTEND Internal Medicine
DX: E11.65 Type 2 diabetes mellitus with hyperglycemia (principal); I10 Essential (primary) hypertension
CPT/HCPCS: 36415; 80048; 83036

== ENCOUNTER 2018-03-27 08:20 | Day surgery (SDC) | payer MEDICARE, BC ==
[2018-03-23 16:15] VITALS: BMI 24.3
[~2018-03-27 08:20] MED LIST changes: +LACTATED RINGERS 1,000 ML IV SCH; +LIDOCAINE 1% 20 ML VIAL (10MG/ML) FOR IV START INTRADERMA PRN; -ceFAZolin 2 GM in SODIUM CHLORIDE 0.9% 100 ML IVPB ONE
[2018-03-27 08:40] VITALS: RESP 18; TEMP 97.7
[2018-03-27 09:11] LABS: Glucose,Whole Blood 104 mg/dL (75-99)
[2018-03-27] MEDS ORDERED: LIDOCAINE 1% INJ 10MG/ML (20 ML MDV) ONE (09:27)
[2018-03-27] MEDS ORDERED: PROPOFOL 10 MG/ML 20 ML VIAL IV ONE (09:27)
--- NOTE | 2018-03-27 10:04 | P.PCN ---
Date of Procedure: 03/27/18 Procedure(s) Performed: Procedure: Colonoscopy and biopsy. Preoperative diagnosis: Change in bowel habits. Postoperative diagnosis: Exam of the colon and terminal ileum within normal limits. Preparation: HalfLytely prep. Sedation: Was provided by anesthesia. Brief clinical history: The patient is a 68-year-old male who was evaluated in the office last month because of intermittent diarrhea that he has been experiencing for the last 2 years or so. No extraintestinal manifestations of inflammatory bowel disease. He had a prior exam 5-7 years prior. This evaluation is to assess for neoplasia, inflammatory bowel disease or other pathology. Procedure: With the patient on his left lateral decubitus position and after informed consent and adequate sedation, the perianal area was inspected and it did not show any fissures or fistulas. There were no masses felt on digital rectal examination. The Olympus CFQ 160L video colonoscope was then inserted in the rectum in the usual fashion and advanced to the cecum. I intubated the ileocecal valve and examined the terminal ileum. Terminal ileum and colon appeared healthy with no edema, erythema, friability, ulceration, exudation or spontaneous bleeding. No polyps or tumors were seen or any obvious diverticular disease or other pathology. I retroflexed the endoscope in the rectum before the endoscope was withdrawn. The patient tolerated the procedure well. Plan: The patient was reassured. Will await biopsy results and make further plans based on his course and biopsy results. He will follow-up in the office next week as planned and we would keep you updated on his progress.
[2018-03-27 10:16] VITALS: BP 101/60; PULSE 78
--- NOTE | 2018-03-29 09:16 | CDI ---
Outpatient Documentation Clarification Form Date: 03/29/18 CDS/Blind Eyeletter Name: Tamika Mon Phone: If any questions, call Mara Cruz Guest Services Ambassador at [phone] Patient Name: Drake Thakur Admit Date: 03/27/18 Discharge Date: 03/27/18 ATTENTION: The [facility] Coding Staff appreciate your assistance in clarifying documentation. Please respond to the clarification below the line at the bottom and electronically sign. The [facility] Coding staff will review the response and follow-up if needed. Please note: Queries are made part of the Legal Health Record. If you have any questions, please contact the Guest Services Ambassador. Dear Dr. Ennis, The title of the procedure states a biopsy was performed. The description of the procedure does not mention a biopsy. Please make a statement below or an addendum describing the biopsy portion of the procedure, if it was, in fact, performed. Thank you for your kind consideration. MTDD
== END 2018-03-27 10:47 | disposition home or self-care (01) ==
LOC: ORWHC2ENDO 08:20
DX: R19.4 Change in bowel habit (principal); R19.7 Diarrhea, unspecified; I25.10 Atherosclerotic heart disease of native coronary artery without angina pectoris; E11.9 Type 2 diabetes mellitus without complications; E78.5 Hyperlipidemia, unspecified; Z95.1 Presence of aortocoronary bypass graft; Z79.82 Long term (current) use of aspirin; Z79.4 Long term (current) use of insulin; Z79.899 Other long term (current) drug therapy; Z96.41 Presence of insulin pump (external) (internal)
CPT/HCPCS: 88305; 45380; J2001; J2704

== ENCOUNTER → 2018-06-23 | Outpatient (CLI) | payer MEDICARE, BC ==
[2018-06-23 09:20] LABS: Calcium 9.4 mg/dL (8.4-10.2); Potassium 5.5 mmol/L (3.5-5.1)
[2018-06-23 19:30] LABS: Hemoglobin A1C 7.1 % (4.0-6.0)
== END | disposition home or self-care (01) ==
LOC: LABWHC1 08:10
PROVIDERS: ATTEND Internal Medicine
DX: E11.21 Type 2 diabetes mellitus with diabetic nephropathy (principal)
CPT/HCPCS: 36415; 80048; 83036

== ENCOUNTER → 2018-11-15 | Outpatient (CLI) | payer MEDICARE, BC ==
[2018-11-15 09:54] LABS: Basophils % (A) 1 %; Eosinophils # (A) 0.7 k/uL (0-0.7); Eosinophils % (A) 9 %; HCT 44.3 % (39.0-53.0); HGB 14.3 gm/dL (13.0-17.5); Lymphocytes # (A) 1.7 k/uL (1.0-4.8); Lymphocytes % (A) 23 %; MCH 29.7 pg (25.0-35.0); MCHC 32.2 g/dL (31.0-37.0); MCV 92.3 fL (80.0-100.0); Mean Platelet Volume 7.5; Monocytes # (A) 0.5 k/uL (0-1.0); Monocytes % (A) 7 %; Neutrophils # (A) 4.2 k/uL (1.3-7.7); Neutrophils % (A) 58 %; Platelet Count 246 k/uL (150-450); RDW 13.5 % (11.5-15.5); WBC 7.1 k/uL (3.8-10.6)
[2018-11-15 18:47] LABS: Albumin/Globulin Ratio 1.9 (1.20-2.10); Anion Gap 4.5 mmol/L (4.00-12.00); Calcium 9.4 mg/dL (8.7-10.3); Carbon Dioxide 29.5 mmol/L (21.6-31.8); Globulin 2.1 g/dL (1.6-3.3); LDL Cholesterol,Calculated 30.4 mg/dL (0.0-131.0); Potassium 5.2 mmol/L (3.5-5.5); Total Bilirubin 0.4 mg/dL (0.3-1.2); Total Protein 6.1 g/dL (6.2-8.2); VLDL Calculation 13.6 mg/dL (5.00-40.00)
[2018-11-15 21:02] LABS: Hemoglobin A1C 7.4 % (4.0-6.0)
== END | disposition home or self-care (01) ==
LOC: LABWHC1 08:39
PROVIDERS: ATTEND Internal Medicine
DX: Z00.00 Encounter for general adult medical examination without abnormal findings (principal); E11.21 Type 2 diabetes mellitus with diabetic nephropathy; E78.2 Mixed hyperlipidemia; E55.9 Vitamin D deficiency, unspecified; Z12.5 Encounter for screening for malignant neoplasm of prostate
CPT/HCPCS: 80061; 80053; 85025; 82306; 83036; 36415; G0103

== ENCOUNTER → 2019-02-23 | Outpatient (CLI) | payer MEDICARE, BC ==
[2019-02-23 10:22] LABS: Basophils % (A) 0 %; Eosinophils # (A) 0.5 k/uL (0-0.7); Eosinophils % (A) 8 %; HCT 43.2 % (39.0-53.0); HGB 13.9 gm/dL (13.0-17.5); Lymphocytes # (A) 1.6 k/uL (1.0-4.8); Lymphocytes % (A) 24 %; MCH 29.2 pg (25.0-35.0); MCHC 32.2 g/dL (31.0-37.0); MCV 90.9 fL (80.0-100.0); Mean Platelet Volume 7.3; Monocytes # (A) 0.3 k/uL (0-1.0); Monocytes % (A) 5 %; Neutrophils # (A) 4.1 k/uL (1.3-7.7); Neutrophils % (A) 60 %; Platelet Count 325 k/uL (150-450); RBC 4.76 m/uL (4.30-5.90); RDW 13.7 % (11.5-15.5); WBC 6.8 k/uL (3.8-10.6)
[2019-02-23 16:50] LABS: Anion Gap 6.4 mmol/L (4.00-12.00); Calcium 9.4 mg/dL (8.7-10.3); Carbon Dioxide 28.6 mmol/L (21.6-31.8); Potassium 5.4 mmol/L (3.5-5.5)
[2019-02-23 19:10] LABS: Hemoglobin A1C 7.1 % (4.0-6.0)
== END | disposition home or self-care (01) ==
LOC: LABWHC1 08:38
PROVIDERS: ATTEND Internal Medicine
DX: E11.65 Type 2 diabetes mellitus with hyperglycemia (principal)
CPT/HCPCS: 36415; 80048; 82043; 82570; 83036; 85025

== ENCOUNTER → 2019-06-18 | Outpatient (CLI) | payer MEDICARE, BC ==
[2019-06-18 16:12] LABS: BUN/Creat Ratio 28.46 Ratio (12.00-20.00); Calcium 9.4 mg/dL (8.7-10.3); Non-African American GFR(CKD) 56.1 (60.0-200.0); Potassium 5.2 mmol/L (3.5-5.5)
[2019-06-18 17:16] LABS: Hemoglobin A1C 7.2 % (4.0-6.0)
== END ==
LOC: LABWHC1 08:05
PROVIDERS: ATTEND Internal Medicine
DX: E11.21 Type 2 diabetes mellitus with diabetic nephropathy (principal)
CPT/HCPCS: 36415; 80048; 83036

== ENCOUNTER → 2020-04-03 | Outpatient (CLI) | payer MEDICARE, BC ==
[2020-04-03 09:54] LABS: Basophils % (A) 0 %; Eosinophils # (A) 0.5 k/uL (0-0.7); Eosinophils % (A) 9 %; HCT 44.9 % (39.0-53.0); HGB 14.3 gm/dL (13.0-17.5); Lymphocytes # (A) 1.4 k/uL (1.0-4.8); Lymphocytes % (A) 25 %; MCH 29.3 pg (25.0-35.0); MCHC 31.8 g/dL (31.0-37.0); MCV 92.1 fL (80.0-100.0); Mean Platelet Volume 8.8; Monocytes # (A) 0.4 k/uL (0-1.0); Monocytes % (A) 8 %; Neutrophils % (A) 56 %; Platelet Count 176 k/uL (150-450); RBC 4.87 m/uL (4.30-5.90); RDW 13.4 % (11.5-15.5); WBC 5.5 k/uL (3.8-10.6)
[2020-04-03 19:35] LABS: ALT 33 U/L (10-49); AST 40 U/L (14-35); African American GFR (CKD) 54.3 (60.0-200.0); Albumin/Globulin Ratio 1.63 (1.60-3.17); Alkaline Phosphatase 96 U/L (41-126); BUN/Creat Ratio 24.67 Ratio (12.00-20.00); Calcium 9.4 mg/dL (8.7-10.3); Carbon Dioxide 29.2 mmol/L (21.6-31.8); Chloride 103 mmol/L (96-109); Chol/HDL Ratio 2.08; Cholesterol 77 mg/dL (0-200); Globulin 2.4 g/dL (1.6-3.3); Glucose 193 mg/dL (70-110); Non-African American GFR(CKD) 46.8 (60.0-200.0); Sodium 137 mmol/L (135-145); Total Bilirubin 0.5 mg/dL (0.2-1.2); Total Protein 6.3 g/dL (6.2-8.2); Triglycerides <50.0 mg/dL (0.0-149.0)
[2020-04-03 21:21] LABS: Hemoglobin A1C 7.5 % (4.0-6.0)
== END | disposition home or self-care (01) ==
LOC: LABWHC1 08:29
PROVIDERS: ATTEND Internal Medicine
DX: Z00.00 Encounter for general adult medical examination without abnormal findings (principal); Z12.5 Encounter for screening for malignant neoplasm of prostate; E11.21 Type 2 diabetes mellitus with diabetic nephropathy; I10 Essential (primary) hypertension; E55.9 Vitamin D deficiency, unspecified
CPT/HCPCS: 80061; 80053; 84443; 85025; 82306; 83036; 36415; G0103

== ENCOUNTER → 2020-11-11 | Outpatient (CLI) | payer MEDICARE, BC ==
[2020-11-11 09:03] LABS: Basophils % (A) 1 %; Eosinophils # (A) 0.7 k/uL (0-0.7); Eosinophils % (A) 10 %; HCT 41.8 % (39.0-53.0); HGB 14.1 gm/dL (13.0-17.5); Lymphocytes # (A) 1.9 k/uL (1.0-4.8); Lymphocytes % (A) 30 %; MCH 31.3 pg (25.0-35.0); MCHC 33.7 g/dL (31.0-37.0); MCV 92.8 fL (80.0-100.0); Mean Platelet Volume 8.1; Monocytes # (A) 0.4 k/uL (0-1.0); Monocytes % (A) 6 %; Neutrophils # (A) 3.3 k/uL (1.3-7.7); Neutrophils % (A) 51 %; Platelet Count 188 k/uL (150-450); RBC 4.51 m/uL (4.30-5.90); RDW 12.4 % (11.5-15.5); WBC 6.4 k/uL (3.8-10.6)
[2020-11-11 15:36] LABS: ALT 35 U/L (10-49); AST 37 U/L (14-35); Albumin/Globulin Ratio 1.74 (1.60-3.17); Alkaline Phosphatase 100 U/L (41-126); Amylase 48 U/L (23-121); Calcium 9.5 mg/dL (8.7-10.3); Chloride 107 mmol/L (96-109); Chol/HDL Ratio 2.25; Cholesterol 81 mg/dL (0-200); Globulin 2.3 g/dL (1.6-3.3); Glucose 185 mg/dL (70-110); Lipase 23 U/L (14-60); Non-African American GFR(CKD) 50.9 (60.0-200.0); Potassium 5.1 mmol/L (3.5-5.5); Sodium 140 mmol/L (135-145); Total Bilirubin 0.4 mg/dL (0.2-1.2); Total Protein 6.3 g/dL (6.2-8.2); Triglycerides <50.0 mg/dL (0.0-149.0)
== END | disposition home or self-care (01) ==
LOC: LABWHC1 07:49
PROVIDERS: ATTEND Nurse Practitioner Adult Health
DX: E11.69 Type 2 diabetes mellitus with other specified complication (principal); E11.22 Type 2 diabetes mellitus with diabetic chronic kidney disease; I12.9 Hypertensive chronic kidney disease with stage 1 through stage 4 chronic kidney disease, or unspecified chronic kidney disease; E78.5 Hyperlipidemia, unspecified; R17 Unspecified jaundice; N18.30 Chronic kidney disease, stage 3 unspecified
CPT/HCPCS: 36415; 80053; 80061; 82150; 82306; 83690; 84443; 85025

== ENCOUNTER → 2020-11-19 | Outpatient (CLI) | payer MEDICARE, BC ==
[2020-11-19 21:47] LABS: Gliadin AB IgA, Deaminated NEGATIVE (NEGATIVE); Gliadin AB IgA, Unit <0.2 U/mL; Gliadin AB IgG, Deaminated NEGATIVE (NEGATIVE)
== END | disposition home or self-care (01) ==
LOC: LABWHC1 10:33
PROVIDERS: ATTEND Nurse Practitioner
DX: K58.0 Irritable bowel syndrome with diarrhea (principal)
CPT/HCPCS: 36415; 82656; 83516

== ENCOUNTER → 2023-07-27 | Outpatient (CLI) | payer MEDICARE, BC ==
--- NOTE | 2023-07-28 09:05 | MR ---
EXAMINATION TYPE: MR kidney wo/w con DATE OF EXAM: 07/27/2023 5:40 PM CLINICAL INDICATION:Male, 73 years old with history of D41.02 KIDNEY MASS; PHH, Left renal mass. COMPARISON: Ultrasound 01/06/2023 TECHNIQUE: Multiplanar multi-sequence imaging was performed without contrast. Post contrast imaging was performed. Post IV contrast subtraction images were also submitted for review. IV Contrast: 6.5 cc Gadavist FINDINGS: LOWER CHEST: No gross irregularity. ABDOMEN Liver: No evidence for hepatic steatosis or cirrhosis. Gallbladder and Bile ducts: No evidence for ductal dilation, or biliary stricture or evidence of chol edocholithiasis. The gallbladder appears surgically absent. Pancreas: No ductal dilation. No evidence for solid mass. 7 mm cystic lesion seen on series 301 image 13 and coronal T2 imaging only (not on axial). No abnormal postcontrast enhancement on T1-weighted a xial imaging. Spleen: Normal for size. Adrenal glands: Unremarkable. Kidneys: Right: No obstructive uropathy. Mildly complex cyst largest measuring 3.7 cm with thin septation. Left: Left medial complex partially cystic renal mass measuring 4.1 x 2.9 x 2.1 cm. Distance is heter ogenous postcontrast enhancement along the septal brewer. Stomach and Bowel: No evidence for bowel wall thickening or evidence for obstruction.. Peritoneum: No evidence of pneumoperitoneum or free fluid. Vasculature: No aortic aneurysm. Musculoskeletal: The osseous structures appear intact. Degeneration changes with scoliosis apex left L4. Lymph Nodes: No gross evidence for lymphadenopathy. Abdominal wall: Unremarkable. IMPRESSION: 1. Complex left upper pole medial renal mass concerning for renal cell carcinoma until proven otherw ise. Urologic consultation recommended if not already performed. 2. Bosniak type I and II right renal cysts. 3. Pancreatic tail 7 mm cyst could represent sidebranch intraductal papillary mucinous neoplasm vers us pseudocyst. No abnormal postcontrast enhancement. Attention on follow-up imaging.
== END | disposition home or self-care (01) ==
LOC: RADMRIMAIN 16:32
PROVIDERS: ATTEND Urology
DX: D41.02 Neoplasm of uncertain behavior of left kidney (principal); N28.89 Other specified disorders of kidney and ureter; N28.1 Cyst of kidney, acquired; K86.89 Other specified diseases of pancreas
CPT/HCPCS: 74183; A9585

== ENCOUNTER 2024-01-23 21:07 | Emergency (ER) | payer MEDICARE, BC ==
--- NOTE | 2024-01-23 21:41 | ED ---
Recheck HPI - General Chief Complaint: Recheck/Abnormal Lab/Rx Stated Complaint: Abnormal Labs-post surgery Time Seen by Provider: 01/23/24 21:38 Source: patient, family, RN notes reviewed, old records reviewed Mode of arrival: ambulatory Limitations: no limitations - History of Present Illness Initial Comments: This is a 74-year-old male to the ER for evaluation today patient presents today for evaluation of abnormal outpatient lab values increase potassium with recent history of r nephrectomy MD Complaint: abnormal lab -: unknown Returns Today for: Called Because of Abnormal Lab/Test Context: called for abnormal lab result Treatments Prior to Arrival: other - Related Data Home Medications Medication Instructions Recorded Confirmed Aspirin EC [Ecotrin Low Dose] 81 mg PO DAILY 12/09/16 03/27/18 Atorvastatin [Lipitor] 80 mg PO HS 12/09/16 03/27/18 Diphenoxylate HCl/Atropine 2 tab PO QID PRN 12/09/16 03/27/18 [Lomotil] Insulin Aspart (For Pump) [NovoLOG 0.01 unit SQ-PUMP CONTINUOUS 12/09/16 03/27/18 (For Pump)] chlordiazePOXIDE/CLIDINIUM BR 1 each PO BID 03/23/18 03/27/18 [Librax] Allergies Allergy/AdvReac Type Severity Reaction Status Date / Time No Known Allergies Allergy Verified 01/23/24 21:27 Review of Systems ROS Statement: Those systems with pertinent positive or pertinent negative responses have been documented in the HPI. ROS Other: All systems not noted in ROS Statement are negative. Past Medical History Past Medical History: Coronary Artery Disease (CAD), Diabetes Mellitus, Hyperlipidemia, Musculoskeletal Disorder Additional Past Medical History / Comment(s): diarrhea frequently History of Any Multi-Drug Resistant Organisms: None Reported Past Surgical History: Cholecystectomy, Coronary Bypass/CABG, Heart Catheteri zation Additional Past Surgical History / Comment(s): quad bypass 2002, surg. 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 Absent: scleral icterus, conjunctival injection, periorbital swelling ENT exam: Present: normal exam, mucous membranes moist Neck exam: Present: normal inspection. Absent: tenderness, meningismus, lymphadenopathy Respiratory exam: Present: normal lung sounds bilaterally. Absent: respiratory distress, wheezes, rales, rhonchi, stridor Cardiovascular Exam: Present: regular rate, normal rhythm, normal heart sounds. Absent: systolic murmur, diastolic murmur, rubs, gallop, clicks GI/Abdominal exam: Present: soft, normal bowel sounds. Absent: distended, tenderness, guarding, rebound, rigid Extremities exam: Present: normal inspection, full ROM, normal capillary refill. Absent: tenderness, pedal edema, joint swelling, calf tenderness Back exam: Present: normal inspection Neurological exam: Present: alert, oriented X3, CN II-XII intact Psychiatric exam: Present: normal affect, normal mood Skin exam: Present: warm, dry, intact, normal color. Absent: rash Course Vital Signs 01/23/24 01/23/24 21:22 23:30 Temperature 98 F 98.1 F Pulse Rate 75 61 Respiratory 18 16 Rate Blood Pressure 154/62 164/84 O2 Sat by Pulse 98 96 Oximetry - Reevaluation(s) Reevaluation #1: 01/23/24 21:40 Medical record is reviewed Reevaluation #2: 01/23/24 21:41 Patient symptoms unchanged Reevaluation #3: Patient informed of results and questions answered Reevaluation #4: Was pt. sent in by a medical professional or institution (, PA, MEDICAL LAB TECHNICIAN, urgent care, hospital, or residential...) When possible be specific @ -no Did you speak to anyone other than the patient for history (EMS, parent, family, police, friend...)? What history was obtained from this source @ -no Did you review nursing and triage notes (agree or disagree)? Why? @ -agree Are old charts reviewed (outside hosp., previous admission, EMS record, old EKG, old radiological studies, urgent care reports/EKG's, residential records)? Report findings @ -yes Differential Diagnosis (chest pain, altered mental status, abdominal pain women, abdominal pain men, vaginal bleeding, weakness, fever, dyspnea, syncope, headache, dizziness, GI bleed, back pain, seizure, CVA, palpatations, mental health, musculoskeletal)? @ -prior EKG interpreted by me (3pts min.). @ -yes X-rays interpreted by me (1pt min.). @ -no CT interpreted by me (1pt min.). @ -no U/S interpreted by me (1pt. min.). @ -no What testing was considered but not performed or refused? (CT, X-rays, U/S, labs)? Why? @ -none What meds were considered but not given or refused? Why? @ -none Did you discuss the management of the patient with other professionals (professionals i.e. , PA, MEDICAL LAB TECHNICIAN, lab, RT, psych nurse, social media intern, warehouse record clerk, teacher, district fire management officer, high risk case manager)? Give summary @ -no Was smoking cessation discussed for >3mins.? @ -no Was critical care preformed (if so, how long)? @ -no Were there social determinants of health that impacted care today? How? (Homelessness, low income, unemployed, alcoholism, drug addiction, transportation, low edu. Level, literacy, decrease access to med. care, residential, rehab)? @ -none Was there de-escalation of care discussed even if they declined (Discuss DNR or withdrawal of care, Hospice)? DNR status @ -no What co-morbidities impacted this encounter? (DM, HTN, Smoking, COPD, CAD, Cancer, CVA, ARF, Chemo, Hep., AIDS, mental health diagnosis, sleep apnea, morbid obesity)? @ -none Was patient admitted / discharged? Hospital course, mention meds given and route, prescriptions, significant lab abnormalities, going to OR and other pertinent info. @ - 74 male to ER for evaluation of abnormal lab testing elevated potassium potassium was elevation was improved here in the ER will follow-up with nephrology as an outpatient Discharge Undiagnosed new problem with uncertain prognosis? @ -no Drug Therapy requiring intensive monitoring for toxicity (Heparin, Nitro, Insulin, Cardizem)? @ -no Were any procedures done? @ -no Diagnosis/symptom? @ -Hyperkalemia Acute, or Chronic, or Acute on Chronic? @ -Acute Uncomplicated (without systemic symptoms) or Complicated (systemic symptoms)? @ -Complicated Side effects of treatment? @ -no Exacerbation, Progression, or Severe Exacerbation? @ -exacerbation Poses a threat to life or bodily function? How? (Chest pain, USA, [place], pneumonia, PE, COPD, DKA, ARF, appy, cholecystitis, CVA, Diverticulitis, Homicidal, Suicidal, threat to staff... and all critical care pts) @ -yes with extremes of age - Consultations Consultation #1: Spoke with Dr. Rhodes who will see the patient in the office Medical Decision Making - Medical Decision Making 74 male to ER for evaluation of abnormal lab testing elevated potassium potassium was elevation was improved here in the ER will follow-up with nephrology as an outpatient - Lab Data Result diagrams: 01/23/24 21:54 01/23/24 21:54 Lab Results 01/23/24 01/23/24 Range/Units 21:54 21:54 WBC 8.1 (3.8-10.6) k/uL RBC 4.20 L (4.30-5.90) m/uL Hgb 12.8 L (13.0-17.5) gm/dL Hct 39.0 (39.0-53.0) % MCV 92.8 (80.0-100.0) fL MCH 30.5 (25.0-35.0) pg MCHC 32.9 (31.0-37.0) g/dL RDW 13.3 (11.5-15.5) % Plt Count 228 (150-450) k/uL MPV 8.4 Neutrophils % 62 % Lymphocytes % 18 % Monocytes % 5 % Eosinophils % 11 % Basophils % 1 % Neutrophils # 5.1 (1.3-7.7) k/uL Lymphocytes # 1.4 (1.0-4.8) k/uL Monocytes # 0.4 (0-1.0) k/uL Eosinophils # 0.9 H (0-0.7) k/uL Basophils # 0.0 (0-0.2) k/uL Sodium 132 L (137-145) mmol/L Potassium 5.4 H (3.5-5.1) mmol/L Chloride 103 (98-107) mmol/L Carbon Dioxide 21 L (22-30) mmol/L Anion Gap 8 mmol/L BUN 52 H (9-20) mg/dL Creatinine 2.35 H (0.66-1.25) mg/dL Est GFR (CKD-EPI)AfAm 31 (>60 ml/min/1.73 sqM) Est GFR (CKD-EPI)NonAf 26 (>60 ml/min/1.73 sqM) Glucose 189 H (74-99) mg/dL Calcium 9.2 (8.4-10.2) mg/dL - EKG Data -: EKG Interpreted by Me (EKG is sinus 71 TN 168 QRS 88 QTc 376) Disposition Clinical Impression: Hyperkalemia Disposition: HOME SELF-CARE Condition: Good Instructions (If sedation given, give patient instructions): Hyperkalemia (ED) Is patient prescribed a controlled substance at d/c from ED?: No Referrals: Michael Caputo DO [Primary Care Provider] - 1-2 days Time of Disposition: 23:50
[2024-01-23 22:10] LABS: African American GFR (CKD) 31 (>60 ml/min/1.73 sqM); Anion Gap 8 mmol/L; Blood Urea Nitrogen 52 mg/dL (9-20); Calcium 9.2 mg/dL (8.4-10.2); Carbon Dioxide 21 mmol/L (22-30); Chloride 103 mmol/L (98-107); Glucose 189 mg/dL (74-99); Non-African American GFR(CKD) 26 (>60 ml/min/1.73 sqM); Potassium 5.4 mmol/L (3.5-5.1); Sodium 132 mmol/L (137-145)
[2024-01-23 22:12] LABS: Basophils % (A) 1 %; Eosinophils # (A) 0.9 k/uL (0-0.7); Eosinophils % (A) 11 %; HGB 12.8 gm/dL (13.0-17.5); Lymphocytes # (A) 1.4 k/uL (1.0-4.8); Lymphocytes % (A) 18 %; MCH 30.5 pg (25.0-35.0); MCHC 32.9 g/dL (31.0-37.0); MCV 92.8 fL (80.0-100.0); Mean Platelet Volume 8.4; Monocytes # (A) 0.4 k/uL (0-1.0); Monocytes % (A) 5 %; Neutrophils # (A) 5.1 k/uL (1.3-7.7); Neutrophils % (A) 62 %; Platelet Count 228 k/uL (150-450); RDW 13.3 % (11.5-15.5); WBC 8.1 k/uL (3.8-10.6)
[2024-01-23 23:46] VITALS: BP 164/84; PULSE 61; RESP 16; TEMP 98.1
[2024-01-24] MEDS: SODIUM ZIRCONIUM CYCLOSILICATE 10 GM PACKET PO ONE (00:08)
[2024-01-24] MEDS: SODIUM ZIRCONIUM CYCLOSILICATE 10 GM PACKET PO STA (00:08)
== END 2024-01-24 00:06 | disposition home or self-care (01) ==
LOC: EC 21:07
DX: E87.5 Hyperkalemia (principal)
CPT/HCPCS: 36415; 80048; 85025; 93005; 99284

== ENCOUNTER 2024-09-09 10:35 | Emergency (ER) | payer MEDICARE, BC ==
[2024-09-09 10:42] VITALS: TEMP 98.3
[2024-09-09 11:08] LABS: Basophils % (A) 0 %; Eosinophils # (A) 0.4 k/uL (0-0.7); Eosinophils % (A) 7 %; HCT 38.7 % (39.0-53.0); HGB 12.5 gm/dL (13.0-17.5); Lymphocytes # (A) 1.2 k/uL (1.0-4.8); Lymphocytes % (A) 18 %; MCH 29.5 pg (25.0-35.0); MCHC 32.2 g/dL (31.0-37.0); MCV 91.4 fL (80.0-100.0); Monocytes # (A) 0.4 k/uL (0-1.0); Monocytes % (A) 6 %; Neutrophils # (A) 4.5 k/uL (1.3-7.7); Neutrophils % (A) 68 %; Platelet Count 207 k/uL (150-450); RBC 4.23 m/uL (4.30-5.90); RDW 13.1 % (11.5-15.5); WBC 6.6 k/uL (3.8-10.6)
--- NOTE | 2024-09-09 11:09 | ED ---
General Adult HPI - General Chief complaint: Skin/Abscess/Foreign Body Stated complaint: Wound on left foot Time Seen by Provider: 09/09/24 10:42 Source: patient Mode of arrival: ambulatory Limitations: no limitations - History of Present Illness Initial comments: Dictation was produced using [employer] net dictation software. please excuse any grammatical, word or spelling errors. Chief Complaint: 74-year-old male with peripheral vascular disease presents with left foot wound History of Present Illness: Patient 74-year-old male he has had a blister/wound on his left foot that has been ongoing for the last 2 to 3 weeks. 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 Denies any fever chills or night sweats. States that he has some pain to his left foot where the wound is. Patient has severe peripheral vascular disease. He has had grafting of his arteries in his lower extremities. The ROS documented in this emergency department record has been reviewed and confirmed by me. Those systems with pertinent positive or negative responses have been documented in the HPI. All other systems are other negative and/or noncontributory. - Related Data Home Medications Medication Instructions Recorded Confirmed Aspirin EC [Ecotrin Low Dose] 81 mg PO DAILY 12/09/16 03/27/18 Atorvastatin [Lipitor] 80 mg PO HS 12/09/16 03/27/18 Diphenoxylate HCl/Atropine 2 tab PO QID PRN 12/09/16 03/27/18 [Lomotil] Insulin Aspart (For Pump) [NovoLOG 0.01 unit SQ-PUMP CONTINUOUS 12/09/16 03/27/18 (For Pump)] chlordiazePOXIDE/CLIDINIUM BR 1 each PO BID 03/23/18 03/27/18 [Librax] Previous Rx's Medication Instructions Recorded Cephalexin [Keflex] 500 mg PO Q6HR 5 Days #20 cap 09/09/24 Allergies Allergy/AdvReac Type Severity Reaction Status Date / Time No Known Allergies Allergy Verified 09/09/24 10:42 Review of Systems ROS Statement: Those systems with pertinent positive or pertinent negative responses have been documented in the HPI. ROS Other: All systems not noted in ROS Statement are negative. Past Medical History Past Medical History: Coronary Artery Disease (CAD), Diabetes Mellitus, Hyperlipidemia, Musculoskeletal Disorder Additional Past Medical History / Comment(s): diarrhea frequently History of Any Multi-Drug Resistant Organisms: None Reported Past Surgical History: Cholecystectomy, Coronary Bypass/CABG, Heart Catheterization Additional Past Surgical History / Comment(s): quad bypass 2002, surg. 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 Cardiovascular: Heart regular rate and rhythm Chest: Able to complete full sentences, no retractions, no tachypnea Abdomen: abdomen soft, non-tender, non-distended, no organomegaly Musculoskeletal: Pulses present and equal in all extremities, no peripheral edema Motor: no focal deficits noted Neurological: CN II-XII grossly intact, no focal motor or sensory deficits noted Skin: Intact with no visualized rashes Psych: Normal affect and mood Left foot: Slightly erythematous. Callus with necrotic center to the left lat eral foot Limitations: no limitations Course Vital Signs 09/09/24 10:39 Temperature 98.3 F Pulse Rate 68 Respiratory 16 Rate Blood Pressure 189/90 O2 Sat by Pulse 96 Oximetry Medical Decision Making - Medical Decision Making Was pt. sent in by a medical professional or institution (, PA, STATISTICAL SECRETARY, urgent care, hospital, or longterm...) When possible be specific @ -No Did you speak to anyone other than the patient for history (EMS, parent, family, police, friend...)? What history was obtained from this source @ -No Did you review nursing and triage notes (agree or disagree)? Why? @ -I reviewed and agree with nursing and triage notes Were old charts reviewed (outside hosp., previous admission, EMS record, old EKG, old radiological studies, urgent care reports/EKG's, longterm records)? Report findings @ -No old charts were reviewed Differential Diagnosis (chest pain, altered mental status, abdominal pain women, abdominal pain men, vaginal bleeding, musculoskeletal, weakness, fever, dyspnea, syncope, headache, dizziness, GI bleed, back pain, seizure, CVA, palpatations, mental health)? @ -Cellulitis, osteomyelitis, ischemic limb EKG interpreted by me (3pts min.). @ -None done X-rays interpreted by me (1pt min.). @ -Left foot x-ray shows soft tissue edema. No osteomyelitis CT interpreted by me (1pt min.). @ -None done U/S interpreted by me (1pt. min.). @ -None done What testing was considered but not performed or refused? (CT, X-rays, U/S, labs)? Why? @ -None What meds were considered but not given or refused? Why? @ -None Was smoking cessation discussed for >3mins.? @ -No Were there social determinants of health that impacted care today? How? (Homelessness, low income, unemployed, alcoholism, drug addiction, transportation, low edu. Level, literacy, decrease access to med. care, senior living, rehab)? @ -No Was there de-escalation of care discussed even if they declined (Discuss DNR or withdrawal of care, Hospice)? DNR status @ -No What co-morbidities impacted this encounter? (DM, HTN, Smoking, COPD, CAD, Can cer, CVA, ARF, Chemo, Hep., AIDS, mental health diagnosis, sleep apnea, morbid obesity)? @ -History of peripheral vascular disease amputation of the right foot Was patient admitted / discharged? Hospital course, mention meds given and route, prescriptions, significant lab abnormalities, going to OR and other pertinent info. @ -74-year-old male concern for wound on the left foot. Vital signs upon arrival are within acceptable limits. Patient well-appearing at the bedside. Perhaps earlier is some very minimal erythema to the foot area. No concern for ischemic limb. Laboratory evaluation within acceptable limits. X-ray shows no osteomyelitis. This point patient cleared for discharge patient given prescription for Keflex. Advise close follow-up with primary care doctor. Return precautions discussed. Did you discuss the management of the patient with other professionals (professionals i.e. , PA, STATISTICAL SECRETARY, lab, RT, psych nurse, community mental health social worker, prototype engineer, teacher, forest fire officer, high risk case manager)? Give summary @ -No Was critical care preformed (if so, how long)? @ -No Undiagnosed new problem with uncertain prognosis? @ -No Drug Therapy requiring intensive monitoring for toxicity (Heparin, Nitro, Insulin, Cardizem)? @ -No Were any procedures done? @ -No Diagnosis/symptom? Acute, or Chronic, or Acute on Chronic? Uncomplicated (without systemic symptoms) or Complicated (systemic symptoms)? @ -Cellulitis Side effects of treatment? @ -No Exacerbation, Progression, or Severe Exacerbation? @ -No Poses a threat to life or bodily function? How? (Chest pain, USA, [place], pneumonia, PE, COPD, DKA, ARF, appy, cholecystitis, CVA, Diverticulitis, Homicidal, Suicidal, threat to staff... and all critical care pts) @ -yes - Lab Data Result diagrams: 09/09/24 11:09/09/24 11: Lab Results 09/09/24 09/09/24 Range/Units 11: 11: WBC 6.6 (3.8-10.6) k/uL RBC 4.23 L (4.30-5.90) m/uL Hgb 12.5 L (13.0-17.5) gm/dL Hct 38.7 L (39.0-53.0) % MCV 91.4 (80.0-100.0) fL MCH 29.5 (25.0-35.0) pg MCHC 32.2 (31.0-37.0) g/dL RDW 13.1 (11.5-15.5) % Plt Count 207 (150-450) k/uL MPV 8.0 Neutrophils % 68 % Lymphocytes % 18 % Monocytes % 6 % Eosinophils % 7 % Basophils % 0 % Neutrophils # 4.5 (1.3-7.7) k/uL Lymphocytes # 1.2 (1.0-4.8) k/uL Monocytes # 0.4 (0-1.0) k/uL Eosinophils # 0.4 (0-0.7) k/uL Basophils # 0.0 (0-0.2) k/uL Sodium 137 (137-145) mmol/L Potassium 4.9 (3.5-5.1) mmol/L Chloride 104 (98-107) mmol/L Carbon Dioxide 28 (22-30) mmol/L Anion Gap 5 mmol/L BUN 65 H (9-20) mg/dL Creatinine 2.29 H (0.66-1.25) mg/dL Est GFR (CKD-EPI)AfAm 32 (>60 ml/min/1.73 sqM) Est GFR (CKD-EPI)NonAf 27 (>60 ml/min/1.73 sqM) Glucose 218 H (74-99) mg/dL Calcium 9.3 (8.4-10.2) mg/dL Disposition Clinical Impression: Cellulitis Disposition: HOME SELF-CARE Condition: Fair Instructions (If sedation given, give patient instructions): Cellulitis (ED) Prescriptions: Cephalexin [Keflex] 500 mg PO Q6HR 5 Days #20 cap Is patient prescribed a controlled substance at d/c from ED?: No Referrals: Michael Caputo DO [Primary Care Provider] - 1-2 days Time of Disposition: 12:04
--- NOTE | 2024-09-09 11:28 | XR ---
EXAMINATION TYPE: XR foot complete LT DATE OF EXAM: 09/09/2024 11:15 AM COMPARISON: CLINICAL INDICATION: Male, 74 years old with history of suspect osteomyelitis; [facility] TECHNIQUE: XR foot complete LT examined in the AP, oblique, and lateral projections. FINDINGS: Soft tissue swelling without evidence of subcutaneous gas or erosion to suggest osteomyelitis. No yumi dence of any acute osseous pathology. Multifocal degeneration changes throughout the joints of the fo ot with osteophyte formation and joint space narrowing. Atherosclerosis of the arterial vasculature. IMPRESSION: 1. Soft tissue swelling without evidence for osteolytic myelitis, No evidence of acute fracture. 2. Multifocal degeneration changes throughout the joints of the foot. [facility], , 09/09/2024 11:26 AM
[2024-09-09 11:34] LABS: African American GFR (CKD) 32 (>60 ml/min/1.73 sqM); Anion Gap 5 mmol/L; Blood Urea Nitrogen 65 mg/dL (9-20); Calcium 9.3 mg/dL (8.4-10.2); Carbon Dioxide 28 mmol/L (22-30); Chloride 104 mmol/L (98-107); Glucose 218 mg/dL (74-99); Non-African American GFR(CKD) 27 (>60 ml/min/1.73 sqM); Potassium 4.9 mmol/L (3.5-5.1); Sodium 137 mmol/L (137-145)
[2024-09-09 12:16] VITALS: BP 173/77; PULSE 78; RESP 18
[2024-09-09 22:53] LABS: C Reactive Protein <0.30 mg/dL (0.00-0.80)
== END 2024-09-09 12:16 | disposition home or self-care (01) ==
LOC: EC 10:35
DX: L03.116 Cellulitis of left lower limb (principal); Z90.49 Acquired absence of other specified parts of digestive tract; Z95.1 Presence of aortocoronary bypass graft
CPT/HCPCS: 36415; 80048; 85025; 86140; 99283